=== PATIENT | female | born 2000 | race Caucasian/White ===

== ENCOUNTER 2024-04-17 21:30 | Inpatient (IN) | payer OTHER, SELFPAY ==
[2024-04-17 21:41] VITALS: BP 132/74; BP 144/94; PULSE 70; PULSE 72; RESP 16; TEMP 37; O2SAT 100; O2SAT 99; BMI 21.8
[2024-04-17 22:47] LABS: MANUAL DIFF FLAG NO
[2024-04-17 22:48] LABS: Basophils Percent Auto 0.4 % (0-2); Eosinophils Absolute Auto 0.1 X10*3/uL (0.0-0.4); Eosinophils Percent Auto 0.7 % (0-4); Hematocrit 42.1 % (37.0-47.0); Imm Gran Abs Auto 0.03 X10*3/uL (0.00-0.03); Imm Gran Pct Auto 0.4 % (0.0-0.4); Lymphocytes Absolute Auto 2.3 X10*3/uL (1.2-4.9); Mean Corpuscular HGB Conc 35.6 g/dl (31.0-35.0); Mean Corpuscular Hemoglobin 32.2 pg (27.0-33.0); Mean Corpuscular Volume 90.3 fL (80.0-98.0); Mean Platelet Volume 9.2 fL (9.4-12.3); Monocytes Absolute Auto 0.5 X10*3/uL (0.1-1.2); Monocytes Percent Auto 5.5 % (2-11); Neutrophils Absolute Auto 5.6 x10*3/uL (2.0-8.3); Platelet Count 361 X10*3/uL (160-400); Red Blood Count 4.66 X10*6/uL (4.20-5.50); Red Cell Distribution Width 12.1 % (11.0-16.0); White Blood Count 8.4 X10*3/uL (4.8-10.8)
[2024-04-17 22:50] LABS: Appearance Urine Clear; Color Urine Yellow; Glucose Urine UA Negative (Negative); Leukocyte Esterase Urine Negative (Negative); Nitrite Urine Negative (Negative); PH 6.5 (5.0-9.0); Specific Gravity - Urine 1.015 (1.005-1.025); UPreg QC Valid YES; Urine Blood Negative (Negative); Urine Ketones Trace mg/dL (Negative); Urine Pregnancy NEGATIVE (NEGATIVE); Urine Protein Negative (Neg-Trace)
[2024-04-17 23:00] LABS: Amphetamine Screen Urine Not Detected (Not Detect); Barbiturates, Urine Not Detected (Not Detect); Benzodiazepines Screen Urine Not Detected (Not Detect); Buprenorphine Scr Not Detected (Not Detect); Cannabinoid Screen Urine POSITIVE (Not Detect); Cocaine Screen Urine Not Detected (Not Detect); Fentanyl, urine Not Detected (Not Detect); Methadone Screen, Urine Not Detected (Not Detect); Opiate Screen Urine Not Detected (Not Detect); Oxycodone Screen Urine Not Detected (Not Detect); Phencyclidine Screen Urine Not Detected (Not Detect)
[2024-04-17 23:08] LABS: Acetaminophen LAB < 3 mcg/mL (<30); Alanine Aminotransferase 16 U/L (0-31); Albumin Level 4.6 g/dL (3.5-5.0); Alkaline Phosphatase 61 U/L (39-117); Anion Gap 13 (12-20); Aspartate Amino Transferase 24 U/L (5-31); Bilirubin Total 0.6 mg/dL (0.0-1.0); Blood Urea Nitrogen 7 mg/dL (9-16); Calcium 9.7 mg/dL (8.4-10.2); Carbon Dioxide 23 mmol/L (22-29); Chloride 109 mmol/L (96-108); Creatinine Clr Calc Pharmacy 104.6; Estimated Glomerular Filt Rate > 60; Ethanol < 10 mg/dL; Glucose Random 147 mg/dL (60-115); Potassium 3.5 mmol/L (3.3-5.1); Salicylate < 5.0 mg/dL (15-30); Sodium 141 mmol/L (135-145); Total Protein 7.9 g/dL (6.5-8.0)
[2024-04-17] MEDS: LORazepam 1 MG TABLET 2 MG PO (23:10)
--- NOTE | 2024-04-18 | ECG_ITS ---
Test Reason : PROLONG QT Blood Pressure : */* mmHG Vent. Rate : 72 BPM Atrial Rate : 72 BPM P-R Int : 136 ms QRS Dur : 86 ms QT Int : 386 ms P-R-T Axes : 10 46 53 degrees QTcB Int : 422 ms Normal sinus rhythm Normal ECG No previous ECGs available Referred By: [place] Electronically Signed By: MISAEL PINTO MD
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
--- NOTE | 2024-04-18 00:19 | PC.NURSE ---
father phone number provided by [facility]- rachel [phone]
--- NOTE | 2024-04-18 07:55 | PHA.MEDREC ---
Pharmacy Consult ? Medication Reconciliation Pharmacy has reviewed the medication reconciliation done by RN. RN has source as patient. OF NOTE: Buyt[employer]InaprKauli claims are from 07/11/2023
[2024-04-18 10:16] VITALS: BP 125/84; PULSE 74; RESP 18; TEMP 37.3; O2SAT 99
[2024-04-18] MEDS: OLANZapine 10 MG TABLET PO ×2 (12:40→21:44)
--- NOTE | 2024-04-18 12:53 | PC.NURSE ---
report given to FERNY Machado on M5 at this time.
[2024-04-18 13:30] VITALS: BP 142/90; PULSE 91; RESP 18; TEMP 36.4; O2SAT 100
--- NOTE | 2024-04-18 14:24 | PC.NURSE ---
pt requesting to take a shower. pt provided w/ personal hygiene products. pending transfer to .
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
[2024-04-18 20:00] VITALS: BP 136/87; PULSE 89; RESP 16; TEMP 36.4; O2SAT 100
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
[2024-04-19 08:00] VITALS: BP 105/69; PULSE 72; RESP 18; TEMP 36.8; O2SAT 100
[2024-04-19] MEDS: OLANZapine 10 MG TABLET PO (08:07)
[2024-04-19 08:51] LABS: Estimated Average Glucose 105 mg/dL; Hemoglobin A1C 140.6279 umol/L; Hemoglobin A1c % 5.3 % (<6.0); Total Hemoglobin (HGBA1C) 4119.8452 umol/L
[2024-04-19 09:00] LABS: Cholesterol 149 mg/dL (<200); HDL Cholesterol 52 mg/dL (>40); LDL Cholesterol Calculated 74 mg/dL (<100); Magnesium 2.4 mg/dL (1.6-2.6); Triglycerides 117 mg/dL (<150)
[2024-04-19 09:19] LABS: Free T4 (Free Thyroxine) 1.18 ng/dL (0.71-1.85); Thyroid Stimulating Hormone 1.38 uIU/mL (0.32-4.0)
[2024-04-19 09:30] LABS: Folate 7.8 ng/mL (> or = 4.0); Vitamin B12 638 pg/mL (200-900)
[2024-04-19] MEDS: hydrOXYzine HCL 25 MG TABLET PO (18:04)
[2024-04-19 19:57] VITALS: BP 137/85; PULSE 76; RESP 16; TEMP 36.7; O2SAT 97
[2024-04-20 07:46] VITALS: BP 119/73; PULSE 79; RESP 18; TEMP 36.4; O2SAT 98
--- NOTE | 2024-04-20 08:45 | HO.PSYCHPN ---
Subjective Subjective Date of Service: 04/20/24 Reason For Visit: Psychosis Subjective Notes: Conditional Voluntary Healthcare Proxy: No Guardianship: No Medical Problems Affecting Mental Status: No Interim History: Engaged in discussion. Agrees to a trial of Lamictal. Finding olanzapine useful as well. Reflective upon precipitants to admission and what she could have done differently to decrease the level of conflict. Feels betrayed and scared by parents. Mom visited. Pt submitted a TDN, asking to transition to OP treatment. Medication Compliance: Yes Side effects from medications: No Attending Groups: Intermittent Review of Systems Acute medical concerns: No Review of Systems Review of Systems Yes all other systems are reviewed and are negative Mental Status Exam Mental Status Exam Patient Appearance: Appropriate Patient Orientation: Person, Place, Time and Situation Level of Consciousness: Alert Patient Behavior: Talkative, Cooperative and Good Eye Contact Mood Description: Labile Affect Description: Labile Patient Cognition Impaired: No Ability to Follow Directions: Good Speech Pattern: Spontaneous Speech Memory Description: Intact Hallucinations: None Delusions: Not Present Perceptual Disturbances: Depersonalization and Derealization Thought Process: Rumination Thought Content: positive for Circumstantial, positive for Suicidal Ideation (denies) and positive for Homicidal Ideation (denies) Depressive Symptoms: Hopelessness Judgement: Fair Diagnostics Vital Signs (24Hr): Vital Signs - 24 hr 04/19/24 19:57 04/20/24 07:46 Temperature 98.0 F 97.5 F Pulse Rate 76 79 Respiratory Rate 16 18 Blood Pressure 137/85 119/73 Pulse Oximetry 97 98 Oxygen Delivery Method Room Air Room Air BMI result Body Mass Index 21.8 Labs 04/17/24 22:40 04/17/24 22:40 Labs: Laboratory Results - last 48 hr 04/19/24 04/19/24 08:22 08:23 Estimat Average Glucose 105 Hemoglobin A1c % 5.3 Magnesium 2.4 Triglycerides 117 Cholesterol 149 LDL Cholesterol, Calc 74 HDL Cholesterol 52 Vitamin B12 638 Folate 7.8 TSH 1.38 Free T4 1.18 Medications Medications Current Medications Acetaminophen (Acetaminophen 325 Mg Tablet) 650 mg PO Q6H PRN PRN Reason: Headache/Pain Mild Scale (1-3) Al Hydroxide/Mg Hydroxide (Magnesium Hydrox/Alum Hydrox 30 Ml Oral.Susp) 30 ml PO Q6H PRN PRN Reason: Heartburn/Nausea Albuterol Sulfate (Albuterol Sulfate 90 Mcg 8 Gm Inhaler) 2 puff INHALE RQ6H PRN PRN Reason: wheezing Hydroxyzine HCl (Hydroxyzine Hcl 25 Mg Tablet) 25 mg PO Q6H PRN PRN Reason: Anxiety Last Admin: 04/19/24 18:04 Dose: 25 mg Magnesium Hydroxide (Milk Of Magnesia 30 Ml Oral.Susp) 30 ml PO DAILY PRN PRN Reason: Constipation Nicotine (Nicotine 21 Mg Patch.Td24) 21 mg TRANSDERMA DAILY PRN PRN Reason: nicotine withdrawal Nicotine Polacrilex (Nicotine Polacrilex 2 Mg Gum) 4 mg BUCCAL Q2H PRN PRN Reason: Nicotine Cravings Olanzapine (Olanzapine 10 Mg Tablet) 10 mg PO BID ANIL Last Admin: 04/19/24 20:24 Dose: Not Given Olanzapine (Olanzapine 5 Mg Tablet) 5 mg PO Q4H PRN PRN Reason: agitation,psychosis,violence Trazodone HCl (Trazodone Hcl 50 Mg Tablet) 50 mg PO BEDTIME MRX1 PRN PRN Reason: Insomnia Allergies Allergies Allergy/AdvReac Type Severity Reaction Status Date / Time No Known Allergies Allergy Unverified 04/17/24 21:53 [No Known Allergies*] Assessment & Plan Assessment & Plan (1) Mood disorder: Status: Acute Code(s): F39 - Unspecified mood [affective] disorder Plan Mood Disorder. Plan: Admit, CV, 15 minute checks Collateral Contacts Diagnostics as needed Encourage full milieu, focus on coping skills. Pt willing to review meds, ?Lamictal trial Discharge planning 04/20-Lamictal 25 mg daily Reason for continued inpatient stay Substantial Risk for: rapid decompensation Time Spent With Patient Time: Total time managing care of this patient today ____ minutes.
[2024-04-20] MEDS: OLANZapine 10 MG TABLET PO ×2 (08:59→20:15)
[2024-04-20 20:00] VITALS: BP 135/80; PULSE 70; TEMP 36.1; O2SAT 97
[2024-04-20] MEDS: hydrOXYzine HCL 25 MG TABLET PO (20:15)
[2024-04-20] MEDS: lamoTRIgine 25 MG TABLET PO (20:15)
[2024-04-21 08:00] VITALS: BP 119/67; PULSE 79; RESP 18; TEMP 36.9; O2SAT 100
[2024-04-21] MEDS: OLANZapine 10 MG TABLET PO ×2 (08:30→20:59)
--- NOTE | 2024-04-21 10:44 | HO.PSYCHPN ---
Subjective Subjective Date of Service: 04/21/24 Reason For Visit: Psychosis Subjective Notes: Conditional Voluntary and 3 Day Healthcare Proxy: No Guardianship: No Medical Problems Affecting Mental Status: No Interim History: TDN to 04/23. Tolerating Lamictal. Isolative -to some groups per team. Talks of using her partner for more support when upset with parents/father. Medication Compliance: Yes Side effects from medications: No Attending Groups: Intermittent Review of Systems Acute medical concerns: No Review of Systems Review of Systems denies Mental Status Exam Mental Status Exam Patient Appearance: Appropriate Patient Orientation: Person, Place, Time and Situation Level of Consciousness: Alert Patient Behavior: Talkative, Cooperative and Good Eye Contact Mood Description: Labile Affect Description: Labile Patient Cognition Impaired: No Ability to Follow Directions: Good Speech Pattern: Spontaneous Speech Memory Description: Intact Hallucinations: None Delusions: Not Present Perceptual Disturbances: Depersonalization and Derealization Thought Process: Rumination Thought Content: positive for Circumstantial, positive for Suicidal Ideation (denies) and positive for Homicidal Ideation (denies) Depressive Symptoms: Hopelessness Judgement: Fair Diagnostics Vital Signs (24Hr): Vital Signs - 24 hr 04/20/24 20:00 04/21/24 08:00 Temperature 96.9 F 98.4 F Pulse Rate 70 79 Respiratory Rate 18 Blood Pressure 135/80 119/67 Pulse Oximetry 97 100 Oxygen Delivery Method Room Air Room Air BMI result Body Mass Index 21.8 Labs 04/17/24 22:40 04/17/24 22:40 Medications Medications Current Medications Acetaminophen (Acetaminophen 325 Mg Tablet) 650 mg PO Q6H PRN PRN Reason: Headache/Pain Mild Scale (1-3) Al Hydroxide/Mg Hydroxide (Magnesium Hydrox/Alum Hydrox 30 Ml Oral.Susp) 30 ml PO Q6H PRN PRN Reason: Heartburn/Nausea Albuterol Sulfate (Albuterol Sulfate 90 Mcg 8 Gm Inhaler) 2 puff INHALE RQ6H PRN PRN Reason: wheezing Hydroxyzine HCl (Hydroxyzine Hcl 25 Mg Tablet) 25 mg PO Q6H PRN PRN Reason: Anxiety Last Admin: 04/20/24 20:15 Dose: 25 mg Lamotrigine (Lamotrigine 25 Mg Tablet) 25 mg PO BEDTIME ANIL Last Admin: 04/20/24 20:15 Dose: 25 mg Magnesium Hydroxide (Milk Of Magnesia 30 Ml Oral.Susp) 30 ml PO DAILY PRN PRN Reason: Constipation Nicotine (Nicotine 21 Mg Patch.Td24) 21 mg TRANSDERMA DAILY PRN PRN Reason: nicotine withdrawal Nicotine Polacrilex (Nicotine Polacrilex 2 Mg Gum) 4 mg BUCCAL Q2H PRN PRN Reason: Nicotine Cravings Olanzapine (Olanzapine 10 Mg Tablet) 10 mg PO BID ANIL Last Admin: 04/21/24 08:30 Dose: 10 mg Olanzapine (Olanzapine 5 Mg Tablet) 5 mg PO Q4H PRN PRN Reason: agitation,psychosis,violence Trazodone HCl (Trazodone Hcl 50 Mg Tablet) 50 mg PO BEDTIME MRX1 PRN PRN Reason: Insomnia Allergies Allergies Allergy/AdvReac Type Severity Reaction Status Date / Time No Known Allergies Allergy Unverified 04/17/24 21:53 [No Known Allergies*] Assessment & Plan Assessment & Plan (1) Mood disorder: Status: Acute Code(s): F39 - Unspecified mood [affective] disorder Plan Mood Disorder. Plan: Admit, CV, 15 minute checks Collateral Contacts Diagnostics as needed Encourage full milieu, focus on coping skills. Pt willing to review meds, ?Lamictal trial Discharge planning 04/21- TDN to 04/23. Reason for continued inpatient stay Substantial Risk for: rapid decompensation Time Spent With Patient Time: Total time managing care of this patient today ____ minutes.
[2024-04-21] MEDS: hydrOXYzine HCL 25 MG TABLET PO (18:16)
[2024-04-21 20:00] VITALS: BP 145/74; PULSE 73; TEMP 37.1; O2SAT 97
[2024-04-21] MEDS: lamoTRIgine 25 MG TABLET PO (20:59)
[2024-04-21] MEDS: Acetaminophen 325 MG TABLET 650 MG PO (20:59)
[2024-04-22 08:00] VITALS: BP 103/66; PULSE 76; TEMP 36.8; O2SAT 98
--- NOTE | 2024-04-22 08:44 | P.PNPSI_ITS ---
Subjective Subjective Date of Service: 04/22/24 Reason For Visit: Psychosis Subjective Notes: Conditional Voluntary and 3 Day Healthcare Proxy: No Guardianship: No Medical Problems Affecting Mental Status: No Interim History: TDN to 04/23. Denies SI,HI, AH,VH. Continues to talk about alternatives for support to prevent another argument with parents. Pt will have a family meeting today with mother and team. She is willing to accept referrals for discharge. No acute sx of luisa, psychosis. We discussed returning to [facility] [place] if sx exacerbated. Medication Compliance: Yes Side effects from medications: No Attending Groups: Intermittent Review of Systems Acute medical concerns: No Review of Systems Review of Systems Denies Mental Status Exam Mental Status Exam Patient Appearance: Appropriate Patient Orientation: Person, Place, Time and Situation Level of Consciousness: Alert Patient Behavior: Talkative, Cooperative and Good Eye Contact Mood Description: Labile Affect Description: Labile Patient Cognition Impaired: No Ability to Follow Directions: Good Speech Pattern: Spontaneous Speech Memory Description: Intact Hallucinations: None Delusions: Not Present Perceptual Disturbances: Depersonalization and Derealization Thought Process: Rumination Thought Content: positive for Circumstantial, positive for Suicidal Ideation (denies) and positive for Homicidal Ideation (denies) Depressive Symptoms: Hopelessness Judgement: Fair Diagnostics Vital Signs (24Hr): Vital Signs - 24 hr 04/21/24 20:00 Temperature 98.7 F Pulse Rate 73 Blood Pressure 145/74 H Pulse Oximetry 97 Oxygen Delivery Method Room Air BMI result Body Mass Index 21.8 Labs 04/17/24 22:40 04/17/24 22:40 Medications Medications Current Medications Acetaminophen (Acetaminophen 325 Mg Tablet) 650 mg PO Q6H PRN PRN Reason: Headache/Pain Mild Scale (1-3) Last Admin: 04/21/24 20:59 Dose: 650 mg Al Hydroxide/Mg Hydroxide (Magnesium Hydrox/Alum Hydrox 30 Ml Oral.Susp) 30 ml PO Q6H PRN PRN Reason: Heartburn/Nausea Albuterol Sulfate (Albuterol Sulfate 90 Mcg 8 Gm Inhaler) 2 puff INHALE RQ6H PRN PRN Reason: wheezing Hydroxyzine HCl (Hydroxyzine Hcl 25 Mg Tablet) 25 mg PO Q6H PRN PRN Reason: Anxiety Last Admin: 04/21/24 18:16 Dose: 25 mg Lamotrigine (Lamotrigine 25 Mg Tablet) 25 mg PO BEDTIME ANIL Last Admin: 04/21/24 20:59 Dose: 25 mg Magnesium Hydroxide (Milk Of Magnesia 30 Ml Oral.Susp) 30 ml PO DAILY PRN PRN Reason: Constipation Nicotine (Nicotine 21 Mg Patch.Td24) 21 mg TRANSDERMA DAILY PRN PRN Reason: nicotine withdrawal Nicotine Polacrilex (Nicotine Polacrilex 2 Mg Gum) 4 mg BUCCAL Q2H PRN PRN Reason: Nicotine Cravings Olanzapine (Olanzapine 10 Mg Tablet) 10 mg PO BID [facility] Last Admin: 04/21/24 20:59 Dose: 10 mg Olanzapine (Olanzapine 5 Mg Tablet) 5 mg PO Q4H PRN PRN Reason: agitation,psychosis,violence Trazodone HCl (Trazodone Hcl 50 Mg Tablet) 50 mg PO BEDTIME MRX1 PRN PRN Reason: Insomnia Allergies Allergies Allergy/AdvReac Type Severity Reaction Status Date / Time No Known Allergies Allergy Unverified 04/17/24 21:53 [No Known Allergies*] Assessment & Plan Assessment & Plan (1) Mood disorder: Status: Acute Code(s): F39 - Unspecified mood [affective] disorder Plan Mood Disorder. Plan: Admit, CV, 15 minute checks Collateral Contacts Diagnostics as needed Encourage full milieu, focus on coping skills. Pt willing to review meds, ?Lamictal trial Discharge planning 04/22- TDN to 04/23. Pt willing to accept referrals Will continue meds Will return if needed Denies SI/HI/AH/VH Informed Consent: understands Reason for continued inpatient stay Substantial Risk for: rapid decompensation Time Spent With Patient Time: Total time managing care of this patient today ____ minutes.
[2024-04-22] MEDS: OLANZapine 10 MG TABLET PO ×2 (08:53→21:17)
[2024-04-22 20:00] VITALS: BP 143/89; PULSE 71; TEMP 36.4; O2SAT 94
[2024-04-22] MEDS: lamoTRIgine 25 MG TABLET PO (21:17)
[2024-04-23 08:07] VITALS: BP 111/67; PULSE 88; TEMP 36.6; O2SAT 98
[2024-04-23] MEDS: OLANZapine 10 MG TABLET PO (09:08)
--- NOTE | 2024-04-23 10:17 | P.DS_ITS ---
DS: Providers Provider Date of admission: 04/18/24 11:31 Primary care physician: Mima Kc MD DS: Diagnosis Discharge Diagnosis (1) Mood disorder: Status: Acute DS: Medications Discharge Medications Home Medications: Home Medications ?Medication ?Instructions ?Recorded ?Confirmed albuterol sulfate 90 mcg/actuation 2 puff inhalation Q6H PRN wheezing 04/18/24 04/18/24 aerosol inhaler Previous Rx's ?Medication ?Instructions ?Recorded lamotrigine 25 mg tablet 25 mg PO BEDTIME #30 tabs 04/23/24 olanzapine 10 mg tablet 10 mg PO BID #60 tabs 04/23/24 Data Data Completed and Pending Completed studies during hospitalization [Text1]: 04/17/24 04/19/24 04/19/24 22:40 08:22 08:23 WBC 8.4 RBC 4.66 Hgb 15.0 Hct 42.1 MCV 90.3 MCH 32.2 MCHC 35.6 H RDW 12.1 Plt Count 361 MPV 9.2 L Immature Gran % (Auto) 0.4 Neut % (Auto) 66.0 Lymph % (Auto) 27.0 Dickinson % (Auto) 5.5 Eos % (Auto) 0.7 Baso % (Auto) 0.4 Lymph # (Auto) 2.3 Dickinson # (Auto) 0.5 Eos # (Auto) 0.1 Baso # (Auto) 0.0 Abs Immat Gran (auto) 0.03 Absolute Neuts (auto) 5.6 Absolute Nucleated RBC 0.000 Nucleated RBC % (auto) 0.0 Sodium 141 Potassium 3.5 Chloride 109 H Carbon Dioxide 23 Anion Gap 13 BUN 7 L Creatinine 0.79 Estim Creat Clear Calc 104.6 Estimated GFR > 60 Random Glucose 147 H Estimat Average Glucose 105 Hemoglobin A1c % 5.3 Calcium 9.7 Magnesium 2.4 Total Bilirubin 0.6 AST 24 ALT 16 Alkaline Phosphatase 61 Total Protein 7.9 Albumin 4.6 Triglycerides 117 Cholesterol 149 LDL Cholesterol, Calc 74 HDL Cholesterol 52 Vitamin B12 638 Folate 7.8 TSH 1.38 Free T4 1.18 Urine Color Yellow Urine Appearance Clear Urine pH 6.5 Ur Specific Kermit 1.015 Urine Protein Negative Urine Glucose (UA) Negative Urine Ketones Trace Urine Blood Negative Urine Nitrite Negative Ur Leukocyte Esterase Negative Urine Test NEGATIVE Salicylates < 5.0 L Urine Opiates Screen Not Detected Ur Buprenorphine Scrn Not Detected Ur Oxycodone Screen Not Detected Urine Methadone Screen Not Detected Urine Fentanyl Screen Not Detected Acetaminophen < 3 Ur Barbiturates Screen Not Detected Ur Phencyclidine Scrn Not Detected Ur Amphetamines Screen Not Detected U Benzodiazepines Scrn Not Detected Urine Cocaine Screen Not Detected U Marijuana (THC) Screen POSITIVE H Ethyl Alcohol < 10 DS: Summary Time Spent with Patient Time attestation: Total time managing care of this patient today ____ minutes. Discharge Plan Discharge Anticipated Discharge Date/Time: 04/23/24 12:00 Patient Disposition: Home, Self-Care Discharge Diagnosis: Mood Disorder Referrals: [facility]- Therapy [Other] - 04/28/24 11:00 am (Please arrive 15 min prior to the intake appointment to complete intake paperwork, also please bring a physical insurance card to the appointment. In person appointment with Mima Garcia ) [facility]-Psychiatric Evaluation [Other] - 05/22/24 2:10 pm (Telehealth appointment with Rocio Reyes, initial appointment will be 1 hour ) [facility]- Medication Management [Other] - 06/19/24 12:00 pm (Telehealth appointment with Rocio Reyes, 20 minute appointment ) [facility] [Other] - 05/29/24 11:00 am (You are on the cancellation list for [facility] will call you if a sooner appointment opens up ) Mima Kc MD [Primary Care Provider] - 05/01/24 2:00 pm (in office appointment ) Discharge Medications: New olanzapine 10 mg Tablet 10 mg PO BID Qty: 60 0RF lamotrigine 25 mg Tablet 25 mg PO BEDTIME Qty: 30 0RF Continued albuterol sulfate 90 mcg/actuation HFA aerosol inhaler 2 puff inhalation Q6H PRN (Reason: wheezing) Discontinued escitalopram oxalate 10 mg tablet 10 mg PO DAILY Discharge Orders: Discharge Order (Routine); Ordered 04/23/24 Ordered By: Shania English Diet: Advance to usual diet Activity on Discharge: As tolerated Stand Alone Forms: Patient Portal Discharge page, Community Support Print Language: Indonesian Care Plan Goals: Mood and Behavioral Stabilization Health Concerns: Mood and Behavioral Stabilization Plan of Treatment: Attend scheduled appointments Take medications as directed Assessment: Pt discharges on a three day notice of intent
== END 2024-04-23 10:26 | disposition home or self-care (01) | DRG 885 ==
LOC: HO.ED 04-18 11:33 → HO.PM5 04-18 11:35
PROVIDERS: Admitting Provider Clinical Nurse Specialist Psychiatric/Mental Health, Adult; Emergency Provider Emergency Medicine Emergency Medical Services; PCP Family Medicine; Visit Provider Clinical Nurse Specialist Psychiatric/Mental Health, Adult
DX: F39 Unspecified mood [affective] disorder (principal); R45.851 Suicidal ideations; F90.9 Attention-deficit hyperactivity disorder, unspecified type; Z91.148 Patient's other noncompliance with medication regimen for other reason; Z91.51 Personal history of suicidal behavior; Z79.899 Other long term (current) drug therapy
CPT/HCPCS: 36415; 80053; 80061; 80143; 80179; 80307; 81003; 81025; 82607; 82746; 83036; 83735; 84439; 84443; 85025; 93005; 99285; S9485

== ENCOUNTER → 2024-04-18 10:06 | Outpatient (BNV) | payer OTHER, SELFPAY | PROVIDERS: Emergency Provider Emergency Medicine Emergency Medical Services; PCP Family Medicine; Visit Provider Internal Medicine Cardiovascular Disease | DX: I45.81 Long QT syndrome (principal) | CPT/HCPCS: 93010 ==

== ENCOUNTER → 2024-04-18 11:31 | Outpatient (BNV) | payer OTHER, SELFPAY | PROVIDERS: Admitting Provider Clinical Nurse Specialist Psychiatric/Mental Health, Adult; Emergency Provider Emergency Medicine Emergency Medical Services; PCP Family Medicine; Visit Provider Clinical Nurse Specialist Psychiatric/Mental Health, Adult | DX: F39 Unspecified mood [affective] disorder (principal) | CPT/HCPCS: 90792; 99232 ==